=== PATIENT | female | born 1985 | race Caucasian/White ===

== ENCOUNTER 2018-09-02 11:30 | Outpatient (CLI) | payer MEDICAID, SELFPAY ==
[2018-09-02 12:14] LABS: Abs Immature Grans 0.01 k/cumm (0.0-0.09); Absolute Basophil Count 0.01 k/cumm (0.0-0.2); Absolute Eosinophil Count 0.16 k/cumm (0.0-0.7); Absolute Lymphocyte Count 2.08 k/cumm (1.2-3.4); Absolute Monocyte Count 0.58 k/cumm (0.11-0.7); Absolute Neutrophil Count 5.11 k/cumm (1.2-6.7); Basophils % 0.1; HCT 36.8 % (36.0-46.0); HGB 12.5 g/dL (12.0-15.5); Immature Grans % 0.1; Lymphocytes % 26.2; Mean Corpuscular Hemoglobin 31.4 pg (27.0-33.0); Mean Corpuscular Volume 92.5 fL (80-95); Monocytes % 7.3; Neutrophils % 64.3; Platelet Count 225 x1000/uL (130-400); RBC 3.98 m/cumm (4.00-5.20); RBC Distribution Width 12.1 % (11.7-14.6); White Blood Cell Count 7.95 k/cumm (4.4-10.8)
[2018-09-02 13:57] LABS: TSH (W/Ref FT4) 1.08 uIU/mL (0.358-3.74)
[2018-09-03 11:46] LABS: Hepatitis B Surface Ag Negative (NEGAT)
[2018-09-03 12:10] LABS: HIV-1/2 Ag & Ab Screen Negative (NEGAT); Hepatitis C Ab w Rflx HCV PCR Negative (NEGAT)
[2018-09-03 12:23] LABS: Rubella IgG Ab (UVM) Positive; Syphilis Serology (RPR) Negative (Negative); Varicella IgG Antibody Positive
== END 2018-09-02 11:50 ==
PROVIDERS: Visit Provider Advanced Practice Midwife
DX: Z34.91 Encounter for supervision of normal pregnancy, unspecified, first trimester (principal); Z01.84 Encounter for antibody response examination; Z11.59 Encounter for screening for other viral diseases; Z11.4 Encounter for screening for human immunodeficiency virus [HIV]
CPT/HCPCS: 36415; 80055; 86787; 86803; 86850; 86900; 86901; 87340; 87389; 84443; 86592; 86762

== ENCOUNTER 2018-09-02 18:40 | Outpatient (REF) | payer MEDICAID, SELFPAY ==
[2018-09-02 19:35] LABS: *AMPHETAMINES SCREEN URINE Negative (Negative); *BARBITURATES SCREEN URINE Negative (Negative); *BENZODIAZEPINES SCREEN URINE Negative (Negative); Cannabinoids THC Negative (Negative); Cocaine Screen,Urine Negative (Negative); METHADONE URINE SCREEN Negative (Negative); OPIATES URINE SCREEN Negative (Negative)
[2018-09-02 19:37] LABS: Tricyclic Antidepressants Negative (Negative)
[2018-09-06 14:36] LABS: Buprenorphine Negative; Norbuprenorphine Negative
== END 2018-09-02 19:00 ==
LOC: LBN 18:40
PROVIDERS: Visit Provider Advanced Practice Midwife
DX: Z34.91 Encounter for supervision of normal pregnancy, unspecified, first trimester (principal)
CPT/HCPCS: 80307; 87086

== ENCOUNTER 2018-10-27 16:06 | Outpatient (CLI) | payer MEDICAID, SELFPAY ==
[2018-10-27 19:41] LABS: Vitamin D 25 Total 21.1 ng/ml (30-100)
[2018-10-27 19:56] LABS: Vitamin B12 416 pg/mL (193-986)
[2018-10-27 20:12] LABS: Folate > 20.0 ng/mL (8.6-20.0)
[2018-10-29 14:46] LABS: Calculated age at EDD 34 years; GA used in risk estimate Scan estimate; INHIBIN 197 pg/mL; IVF Pregnancy No; Initial or repeat testing Initial testing; Insulin dependent diabetes No; Maternal Weight 140 lbs; Number of Fetuses 1; Physician Phone Number 802-748-7300; Prev Down(T21)/Trisomy Pregnan No; Prev Pregnancy w/NTD No; RECOMMENDED FOLLOW UP None.; Results Summary Normal risk; hCG, TOTAL 29.3 IU/mL; hCG, TOTAL MoM 1.58 MoM; uE3 1.08 ng/mL; uE3 MoM 0.81 MoM
[2018-10-29 15:26] LABS: Chlamydia Result Negative; GC Result Negative; Specimen Description URINE
[2018-11-05 03:21] LABS: Result Summary POSITIVE; Specimen WB Whole Blood
== END 2018-10-27 16:26 ==
PROVIDERS: Visit Provider Advanced Practice Midwife
DX: Z34.91 Encounter for supervision of normal pregnancy, unspecified, first trimester (principal); Z11.3 Encounter for screening for infections with a predominantly sexual mode of transmission; Z36.89 Encounter for other specified antenatal screening
CPT/HCPCS: 36415; 81511; 82306; 87491; 87591; 81220; 82607; 82746

== ENCOUNTER 2018-10-27 17:05 | Outpatient (REF) | payer MEDICAID, SELFPAY | END 2018-10-27 17:25 | LOC: LBN 17:05 | PROVIDERS: Visit Provider Advanced Practice Midwife | DX: Z34.91 Encounter for supervision of normal pregnancy, unspecified, first trimester (principal) | CPT/HCPCS: 87491; 87591 ==

== ENCOUNTER 2018-11-14 00:39 | Outpatient (CLI) | payer MEDICAID, SELFPAY ==
--- NOTE | 2018-11-14 14:27 | DI.US_ITS ---
SYMPTOM/DIAGNOSIS: SURVEY, Z34.90 OBSTETRICAL ULTRASOUND: There is a single living intrauterine gestation. Estimated sonographic age is 21 weeks. No or placental abnormalities are identified. Many abnormalities cannot be diagnosed. A normal exam does not exclude a congenital anomaly. Radiology No. [id number] LMP: Exam Date: 11/14/18 [facility] wks days on EDC ([facility]) 03/31/19 Confirmed: HISTORY: SURVEY PREDICTED GESTATIONAL AGE NUMBER 20 +3 weeks with a range of 19 +3 week to 21 +3 weeks. 1 Determined by___1STUS___LMP_XX__HISTORY Info. pertaining to fetus # PLACENTA PRESENTATION Grade I Cephalic___ Anterior_XX__Posterior___ Breech____ Right Left Transverse(head right___ Fundal___Low-lying___Previa___ Transverse(head left___ Varying__XX____ BIOMETRY AMNIOTIC FLUID BPD: 51 mm 21 +3 weeks Normal HC: 185 mm 20 +6 weeks AC: 155 mm 20 +5 weeks FL: 34 mm 20 +6 weeks AMNIOTIC FLUID INDEX >26 WK CRL: mm weeks Cisterna Magna: 4.1 mm CI: 82 RUQ: LUQ Cerebellum: 2.0 cm EFW: 376 grams 65% Percentile RLQ: LLQ Total: cms Composite AGE= 21 - wks EDC by US__03/27/19 BIOPHYSICAL PROFILE ANATOMY IDENTIFIED SCORE 0/2 Heart: 4-Chamber__X_Rate:BPM__160 bpm___ LVOT:___X RVOT:___X Amniotic Fluid(>2cms)____ Stomach:___X____ Kidneys:___X____ Respirations (>30 secs) Bladder:___X Post. Fossa:___X Body Flex/Extension 3 vessel cord:___X____Ventricles:___X cord insertion:__X___ Lips:___X_ Extremity Flex/Extension spinal morphology:__X Nose: X Total Score= Palate:___X____ NS=not seen
== END 2018-11-14 00:59 ==
PROVIDERS: Visit Provider Advanced Practice Midwife
DX: Z34.92 Encounter for supervision of normal pregnancy, unspecified, second trimester (principal)
CPT/HCPCS: 76805

== ENCOUNTER 2018-12-03 13:12 | Outpatient (REF) | payer MEDICAID, SELFPAY | END 2018-12-03 13:32 | LOC: LBN 13:12 | PROVIDERS: Visit Provider Advanced Practice Midwife | DX: N76.0 Acute vaginitis (principal) | CPT/HCPCS: 87480; 87510; 87660 ==

== ENCOUNTER 2019-02-23 13:11 | Outpatient (CLI) | payer MEDICAID, SELFPAY ==
[2019-02-23 14:37] LABS: Abs Immature Grans 0.04 k/cumm (0.0-0.09); Absolute Basophil Count 0.01 k/cumm (0.0-0.2); Absolute Lymphocyte Count 1.65 k/cumm (1.2-3.4); Absolute Monocyte Count 0.68 k/cumm (0.11-0.7); Absolute Neutrophil Count 8.59 k/cumm (1.2-6.7); Basophils % 0.1; Eosinophils % 0.9; HGB 12.2 g/dL (12.0-15.5); Immature Grans % 0.4; Lymphocytes % 14.9; Mean Corp. HGB Concentration 33.9 g/dL (32.0-36.0); Mean Corpuscular Volume 94.5 fL (80-95); Mean Platelet Volume 11.3 fL (8.0-11.0); Monocytes % 6.1; Neutrophils % 77.6; Platelet Count 223 x1000/uL (130-400); RBC 3.81 m/cumm (4.00-5.20); RBC Distribution Width 12.6 % (11.7-14.6); White Blood Cell Count 11.07 k/cumm (4.4-10.8)
[2019-02-23 15:18] LABS: Glucose 104 mg/dL (70-100)
[2019-02-23 15:22] LABS: Iron 67 ug/dL (50-175); Total Iron Binding Capacity 456 ug/dL (250-450); Transferrin Sat 15 % (15-50)
[2019-02-23 15:49] LABS: Ferritin 15 ng/mL (8-388); Vitamin B12 298 pg/mL (193-986)
[2019-02-23 15:55] LABS: Folate > 20.0 ng/mL (8.6-20.0)
[2019-02-23 17:39] LABS: Hemoglobin A1C 5.4 % (4.5-6.2)
[2019-02-27 15:49] LABS: Methylenetetrahydrofol Reduc M Heterozygous (Negative)
== END 2019-02-23 13:31 ==
PROVIDERS: Advanced Practice Midwife; Visit Provider Naturopath
DX: R79.89 Other specified abnormal findings of blood chemistry (principal); R77.8 Other specified abnormalities of plasma proteins; D64.9 Anemia, unspecified; Z34.90 Encounter for supervision of normal pregnancy, unspecified, unspecified trimester
CPT/HCPCS: 82947; 81291; 82607; 82728; 82746; 83036; 83540; 83550; 85025; 87081

== ENCOUNTER 2019-03-06 12:58 | Outpatient (REF) | payer MEDICAID, SELFPAY ==
[2019-03-06 14:22] LABS: *AMPHETAMINES SCREEN URINE Negative (Negative); *BARBITURATES SCREEN URINE Negative (Negative); *BENZODIAZEPINES SCREEN URINE Negative (Negative); Cannabinoids THC Negative (Negative); Cocaine Screen,Urine Negative (Negative); METHADONE URINE SCREEN Negative (Negative); OPIATES URINE SCREEN Negative (Negative)
[2019-03-06 14:29] LABS: Tricyclic Antidepressants Negative (Negative)
[2019-03-11 14:41] LABS: Buprenorphine Negative
== END 2019-03-06 13:18 ==
LOC: LBN 12:58
PROVIDERS: PCP Nurse Practitioner Adult Health; Visit Provider Advanced Practice Midwife
DX: Z34.93 Encounter for supervision of normal pregnancy, unspecified, third trimester (principal)
CPT/HCPCS: 80307

== ENCOUNTER 2019-04-02 05:34 | Inpatient (IN) | payer MEDICAID, SELFPAY ==
[2019-04-02 07:36] LABS: HCT 38.1 % (36.0-46.0); HGB 12.9 g/dL (12.0-15.5); Mean Corp. HGB Concentration 33.9 g/dL (32.0-36.0); Mean Corpuscular Volume 94.5 fL (80-95); Platelet Count 216 x1000/uL (130-400); RBC 4.03 m/cumm (4.00-5.20); RBC Distribution Width 12.7 % (11.7-14.6); White Blood Cell Count 14.34 k/cumm (4.4-10.8)
[2019-04-02] MEDS: Lactated Ringers 500 ML IV (10:30)
[2019-04-02] MEDS: FentaNYL/ROPIvacaine 2 mcg/ml and 0.1% 200 ML CADD Cassette EP (10:32)
[2019-04-02] MEDS: Lactated Ringers 1,000 ML 125 ML IV (16:23)
[2019-04-02] MEDS: Sodium Citrate 30 ML CUP (16:23)
--- NOTE | 2019-04-02 20:01 | ROE_ITS ---
Date of service: 04/02/19 Time of Service: 19:54 Operative Note DATE OF PROCEDURE: 04/02/19 PRE-OP DIAGNOSIS: Arrest of descent in second stage labor POST-OP DIAGNOSIS: same PROCEDURE: Low Forceps SURGEON: Willy Lou ANESTHESIA: epidural ESTIMATED BLOOD LOSS: 300 PATHOLOGY: none sent COMPLICATIONS: None Findings: 1. Del LBF 7,8 with thick meconium Procedure Description: I was asked to evaluate the patient during second stage of greater than 4 hours. Fetus noted to be in direct OP position and +2 station. The patient was counseled on risks related to operative vaginal delivery including facial nerve injury and intracranial hemorrhage. All questions were answered and verbal consent was obtained. Liukart henson forceps were applied easily. Gentle traction augmented maternal effort. The infant was delivered after two contractions and over a second degree laceration. The infant was placed on maternal abdomen and subsequently handed off to the awaiting vice president of engineering.
[2019-04-02] MEDS: Acetaminophen 325 MG TAB 650 MG PO (23:49)
[2019-04-02] MEDS: Ibuprofen 600 MG TAB PO (23:49)
[2019-04-03] MEDS: Hamamelis Leaf/Glycerin 100 EACH BOX PR (00:05)
[2019-04-03] MEDS: Acetaminophen 325 MG TAB 650 MG PO ×5 (06:23→20:01)
[2019-04-03] MEDS: Ibuprofen 600 MG TAB PO ×4 (06:23→19:45)
[2019-04-03 07:18] LABS: HCT 34.3 % (36.0-46.0); HGB 11.3 g/dL (12.0-15.5); Mean Corp. HGB Concentration 32.9 g/dL (32.0-36.0); Mean Corpuscular Hemoglobin 31.1 pg (27.0-33.0); Mean Corpuscular Volume 94.5 fL (80-95); Mean Platelet Volume 12.1 fL (8.0-11.0); Platelet Count 174 x1000/uL (130-400); RBC 3.63 m/cumm (4.00-5.20); RBC Distribution Width 12.8 % (11.7-14.6)
[2019-04-03] MEDS: Sertraline 25 MG TAB PO (09:09)
[2019-04-04] MEDS: Acetaminophen 325 MG TAB 650 MG PO ×3 (00:16→15:06)
[2019-04-04] MEDS: Ibuprofen 600 MG TAB PO ×2 (00:54→10:37)
[2019-04-04] MEDS: oxyCODONE 5 mg/Acetaminophen 325 mg TAB 1 TAB PO ×2 (02:24→07:50)
[2019-04-04] MEDS: Sertraline 25 MG TAB 12.5 MG PO (07:50)
== END 2019-04-04 16:15 | disposition home or self-care (01) | DRG 807 ==
PROVIDERS: Obstetrics & Gynecology; Admitting Provider Advanced Practice Midwife; Visit Provider Advanced Practice Midwife
DX: O70.1 Second degree perineal laceration during delivery (principal); Z37.0 Single live birth; O77.0 Labor and delivery complicated by meconium in amniotic fluid; O62.1 Secondary uterine inertia; O32.8XX0 Maternal care for other malpresentation of fetus, not applicable or unspecified; O48.0 Post-term pregnancy; Z3A.40 40 weeks gestation of pregnancy; O42.02 Full-term premature rupture of membranes, onset of labor within 24 hours of rupture; O99.344 Other mental disorders complicating childbirth; O99.62 Diseases of the digestive system complicating childbirth; F41.8 Other specified anxiety disorders; F43.10 Post-traumatic stress disorder, unspecified; X58.XXXS Exposure to other specified factors, sequela; R12 Heartburn
CPT/HCPCS: 36415; 85027; 86850; 86900; 86901; G0378; J3490

== ENCOUNTER 2019-04-08 17:06 | Outpatient (REF) | payer MEDICAID, SELFPAY | END 2019-04-08 17:26 | LOC: LBN 17:06 | PROVIDERS: PCP Obstetrics & Gynecology; Visit Provider Obstetrics & Gynecology | DX: R30.0 Dysuria (principal) | CPT/HCPCS: 87086 ==

== ENCOUNTER 2019-04-12 16:23 | Outpatient (CLI) | payer MEDICAID, SELFPAY ==
[2019-04-12 17:32] LABS: HCT 37.6 % (36.0-46.0); HGB 12.3 g/dL (12.0-15.5); Mean Corp. HGB Concentration 32.7 g/dL (32.0-36.0); Mean Corpuscular Hemoglobin 31.1 pg (27.0-33.0); Mean Corpuscular Volume 95.2 fL (80-95); Mean Platelet Volume 10.5 fL (8.0-11.0); RBC 3.95 m/cumm (4.00-5.20); RBC Distribution Width 12.6 % (11.7-14.6); White Blood Cell Count 10.78 k/cumm (4.4-10.8)
[2019-04-12 17:34] LABS: Platelet Count 383 x1000/uL (130-400)
== END 2019-04-12 16:43 ==
PROVIDERS: PCP Obstetrics & Gynecology; Visit Provider Advanced Practice Midwife
DX: O90.1 Disruption of perineal obstetric wound (principal)
CPT/HCPCS: 36415; 85027

== ENCOUNTER 2019-04-12 18:27 | Observation (INO) | payer MEDICAID, SELFPAY | END 2019-04-12 19:50 | disposition home or self-care (01) | PROVIDERS: Admitting Provider Advanced Practice Midwife; PCP Obstetrics & Gynecology; Visit Provider Advanced Practice Midwife | DX: O90.89 Other complications of the puerperium, not elsewhere classified (principal); O90.1 Disruption of perineal obstetric wound; O92.79 Other disorders of lactation | CPT/HCPCS: 36415; 85027; 87086; G0378 ==

== ENCOUNTER 2019-05-19 10:34 | Outpatient (REF) | payer MEDICAID, SELFPAY ==
--- NOTE | 2019-05-19 16:00 | PAPFT_PTH ---
PATIENT: Miesha Cheema LOC: [facility] U#:[id number] AGE/SX: 33/F ROOM: RE05/19/[address]: Patricia Brar CNM : 1985 BED: DIS: 05/19/2019 SPEC #: [id number] RECD: 05/20/19 12:48 STATUS: H[place]ARY REBertha #: [id number] REYMUNDO: 05/19/19 16:[address]: Patricia Brar DEPT: [facility] Cytology RECD BY: Kemi Hall ENTERED: 05/20/19 12:49 SP TYPE: PAPFT OT DR: Maria Guadalupe Ring APRN Tissues: 1 - CX/ENDOCX FOR PAP SMEARS Procedures: PAP THIN PREP/UVM Screening HPV DNA PROBE Comments: [id number]
[2019-05-21 13:38] LABS: Chlamydia Result Negative; GC Result Negative; Specimen Description CERVIX
== END 2019-05-19 10:54 ==
LOC: LBN 10:34
PROVIDERS: PCP Nurse Practitioner Adult Health; Visit Provider Advanced Practice Midwife
DX: Z30.430 Encounter for insertion of intrauterine contraceptive device (principal); Z12.4 Encounter for screening for malignant neoplasm of cervix; Z11.51 Encounter for screening for human papillomavirus (HPV)
CPT/HCPCS: 87491; 87591; 88142; 87624

== ENCOUNTER 2019-07-25 10:30 | Outpatient (CLI) | payer OTHER, SELFPAY ==
[2019-07-25 11:18] LABS: HCT 41.8 % (36.0-46.0); HGB 13.6 g/dL (12.0-15.5); Mean Corp. HGB Concentration 32.5 g/dL (32.0-36.0); Mean Corpuscular Volume 92.3 fL (80-95); Mean Platelet Volume 10.5 fL (8.0-11.0); Platelet Count 356 x1000/uL (130-400); RBC 4.53 m/cumm (4.00-5.20); RBC Distribution Width 12.5 % (11.7-14.6)
[2019-07-25 12:40] LABS: ALT 40 U/L (14-59); AST 22 U/L (15-37); Albumin 4.1 g/dL (3.4-5.0); Alkaline Phosphatase 140 U/L (46-116); Anion Gap 11.4 mmol/L (3-11); BUN 14 mg/dL (7-18); Bilirubin, Total 0.3 mg/dL (0.2-1.0); CO2 28.6 mmol/L (21.0-32.0); CREATININE 0.63 mg/dL (0.55-1.02); Calcium 8.9 mg/dL (8.5-10.1); Chloride 103 mmol/L (98-107); Glucose 96 mg/dL (70-100); Potassium 4.2 mmol/L (3.5-5.1); Sodium 143 mmol/L (136-145); TSH (W/Ref FT4) 0.82 uIU/mL (0.36-3.74); Vitamin B12 615 pg/mL (193-986)
[2019-07-25 13:23] LABS: Folate > 20.0 ng/mL (8.6-20.0)
[2019-07-27 11:46] LABS: Vitamin D 25 Total 26.7 ng/ml (30-100)
== END 2019-07-25 10:50 ==
PROVIDERS: PCP Nurse Practitioner Adult Health; Visit Provider Nurse Practitioner Adult Health
DX: R53.83 Other fatigue (principal); F32.9 Major depressive disorder, single episode, unspecified; F41.9 Anxiety disorder, unspecified
CPT/HCPCS: 36415; 80053; 82306; 85027; 82607; 82746; 84443

== ENCOUNTER 2020-02-12 02:59 | Outpatient (CLI) | payer MEDICAID, SELFPAY ==
[2020-02-12 17:55] LABS: TSH (W/Ref FT4) 1.46 uIU/mL (0.36-3.74)
[2020-02-15 06:31] LABS: Vitamin D 25 Total 24.8 ng/ml (30-100)
[2020-02-18 13:57] LABS: IgA 316 mg/dL (85-499); Tissue Transglutaminase IgA <1.2 U/mL (<4.0)
== END 2020-02-12 03:19 ==
PROVIDERS: PCP Nurse Practitioner Adult Health; Visit Provider Nurse Practitioner Adult Health
DX: K90.41 Non-celiac gluten sensitivity (principal); K90.49 Malabsorption due to intolerance, not elsewhere classified; E55.9 Vitamin D deficiency, unspecified; F32.9 Major depressive disorder, single episode, unspecified
CPT/HCPCS: 36415; 82306; 82784; 83516; 84443

== ENCOUNTER 2020-03-02 03:25 | Outpatient (CLI) | payer MEDICAID, SELFPAY ==
[2020-03-04 15:58] LABS: Copper, Serum 1.24 mcg/mL (0.75-1.45)
== END 2020-03-02 03:45 ==
PROVIDERS: PCP Nurse Practitioner Adult Health; Visit Provider Nurse Practitioner Adult Health
DX: F41.9 Anxiety disorder, unspecified (principal); R19.4 Change in bowel habit; Z97.5 Presence of (intrauterine) contraceptive device
CPT/HCPCS: 36415; 82525; 84630

== ENCOUNTER 2020-03-28 01:18 | Outpatient (CLI) | payer MEDICAID, SELFPAY ==
[2020-03-28 16:01] LABS: Magnesium 1.9 mg/dL (1.8-2.4)
[2020-03-28 16:37] LABS: Vitamin D 25 Total 27.1 ng/ml (30-100)
== END 2020-03-28 01:38 ==
PROVIDERS: PCP Nurse Practitioner Adult Health; Visit Provider Nurse Practitioner Adult Health
DX: E55.9 Vitamin D deficiency, unspecified (principal); F32.9 Major depressive disorder, single episode, unspecified; F40.10 Social phobia, unspecified; F41.1 Generalized anxiety disorder; K90.49 Malabsorption due to intolerance, not elsewhere classified
CPT/HCPCS: 36415; 82306; 83735

== ENCOUNTER 2020-07-01 02:18 | Outpatient (CLI) | payer MEDICAID, SELFPAY ==
[2020-07-01 16:00] LABS: Abs Immature Grans 0.02 10^3/uL (0.0-0.06); Absolute Basophil Count 0.02 10^3/uL (0.0-0.2); Absolute Eosinophil Count 0.24 10^3/uL (0.0-0.7); Absolute Lymphocyte Count 2.76 10^3/uL (1.2-3.4); Absolute Monocyte Count 0.52 10^3/uL (0.1-0.8); Absolute Neutrophil Count 5.49 10^3/uL (1.2-6.7); Basophils % 0.2; Eosinophils % 2.7; HCT 38.5 % (36.0-46.0); Immature Grans % 0.2; Lymphocytes % 30.5; MCH 31.3 pg (27.0-33.0); MCHC 33.8 % (32.0-36.0); MCV 92.8 fL (80-95); MPV 11.7 fL (8.0-11.0); Monocytes % 5.7; Neutrophils % 60.7; Nucleated RBC 0 %; Platelet Count 215 10^3/uL (130-400); RBC 4.15 10^6/uL (3.93-5.22); RDW 11.8 % (11.7-14.6); RDW-SD 39.8 fL; WBC 9.05 10^3/uL (4.4-10.8)
[2020-07-01 16:51] LABS: ALT 29 U/L (14-59); AST 15 U/L (15-37); Albumin 4.2 g/dL (3.4-5.0); Alkaline Phosphatase 77 U/L (46-116); Anion Gap 11.7 mmol/L (3-11); BUN 9 mg/dL (7-18); Bilirubin, Total 0.5 mg/dL (0.2-1.0); CO2 25.3 mmol/L (21.0-32.0); CREATININE 0.62 mg/dL (0.55-1.02); Calcium 8.8 mg/dL (8.5-10.1); Chloride 101 mmol/L (98-107); FREE T4 1.06 ng/dL (0.76-1.46); Glucose 79 mg/dL (74-106); Potassium 3.5 mmol/L (3.5-5.1); Sodium 138 mmol/L (136-145); TSH 1.26 uIU/mL (0.36-3.74); Total Protein 7.4 g/dL (6.4-8.2)
[2020-07-01 21:11] LABS: T3,Free 3.7 pg/mL (2.8-5.3)
[2020-07-01 22:30] LABS: Thyroperoxidase Antibody <28 U/mL (<=60)
[2020-07-01 22:31] LABS: Thyroglobulin Antibody <15 U/mL (<=60)
[2020-07-01 22:35] LABS: Iron 95 ug/dL (50-170); Total Iron Binding Capacity 334 ug/dL (250-450); Transferrin Sat 28 % (15-50)
[2020-07-04 15:09] LABS: ANA Interpretation Negative (Negative)
[2020-07-05 10:41] LABS: 25-Hydroxy D Total 29 ng/mL; 25-Hydroxy D2 16 ng/mL; 25-Hydroxy D3 13 ng/mL
[2020-07-05 19:06] LABS: B.burgdorferi PCR, B Negative (Negative); B.garinii/B.afzelii PCR,B Negative (Negative); B.mayonii PCR, B Negative (Negative)
== END 2020-07-01 02:38 ==
PROVIDERS: PCP Nurse Practitioner Adult Health; Visit Provider Naturopath
DX: E55.9 Vitamin D deficiency, unspecified (principal); R53.83 Other fatigue; M79.18 Myalgia, other site
CPT/HCPCS: 36415; 80053; 82306; 87476; 87798; 83540; 83550; 84439; 84443; 84481; 85025; 86038; 86376; 86800

== ENCOUNTER 2020-07-22 04:43 | Outpatient (CLI) | payer MEDICAID, SELFPAY ==
--- NOTE | 2020-07-22 | DI.MAMMO_ITS ---
EXAM: MG MAMMO SCREENING CLINICAL HISTORY: SCREENING,FAMILY H/O BREAST CA TECHNIQUE: Bilateral full field digital CC and MLO mammographic images were obtained with 3D tomosyn thesis and utilizing computer aided detection (CAD). COMPARISON: None. FINDINGS: Masses/Architectural Distortion: None seen. Microcalcifications: No suspicious pleomorphic-type are seen. Skin Thickening/Nipple Retraction: None. IMPRESSION: 1. No specific features of malignancy noted. 2. Unless there is more urgent need, screening mammography is recommended, as per [place] [employer] guidelines. BI-RADS Category 1 - Negative Breast Density - Category C - Heterogeneously dense The mammogram demonstrates the patient's breast tissue is dense. Dense breast tissue is very common a nd is not abnormal but dense breast tissue can make it harder to find cancer on a mammogram. Also, de nse breast tissue may increase their breast cancer risk. This information about the result of the [facility] mogram report was provided to the patient to raise their awareness. Use this report when you speak wi th the patient about their risks for breast cancer, which includes their family history. At that time , you may recommend for more screening tests (Ultrasound or MRI) as they might be useful based on the ir risk. A negative radiographic report should not delay biopsy if a dominant or clinically suspicious mass is present. Up to ten percent of cancers are not identified on mammography. A negative report may reinforce clinical impression. Adenosis and dense breasts may obscure an underlying neoplasm. False positive reports average 6 to 10%. Patient will receive a letter notifying them of these results.
== END 2020-07-22 05:03 ==
PROVIDERS: PCP Nurse Practitioner Adult Health
DX: Z12.31 Encounter for screening mammogram for malignant neoplasm of breast (principal); Z80.3 Family history of malignant neoplasm of breast
CPT/HCPCS: 77063; 77067

== ENCOUNTER 2021-04-26 03:02 | Outpatient (CLI) | payer MEDICAID, SELFPAY ==
[2021-04-26 17:17] LABS: Abs Immature Grans 0.03 10^3/uL (0.0-0.06); Absolute Basophil Count 0.03 10^3/uL (0.0-0.2); Absolute Eosinophil Count 0.29 10^3/uL (0.0-0.7); Absolute Lymphocyte Count 3.16 10^3/uL (1.2-3.4); Absolute Monocyte Count 0.59 10^3/uL (0.1-0.8); Absolute Neutrophil Count 6.13 10^3/uL (1.2-6.7); Basophils % 0.3; Eosinophils % 2.8; HCT 41.7 % (36.0-46.0); HGB 13.9 g/dL (11.2-15.7); Immature Grans % 0.3; Lymphocytes % 30.9; MCH 30.9 pg (27.0-33.0); MCHC 33.3 % (32.0-36.0); MCV 92.7 fL (80-95); MPV 11.4 fL (8.0-11.0); Monocytes % 5.8; Neutrophils % 59.9; Nucleated RBC 0 %; Platelet Count 245 10^3/uL (130-400); RDW 11.8 % (11.7-14.6); RDW-SD 40.4 fL; WBC 10.23 10^3/uL (4.4-10.8)
[2021-04-26 17:35] LABS: Hemoglobin A1C 5.4 % (<5.7)
[2021-04-26 18:09] LABS: ALT 34 U/L (14-59); AST 17 U/L (15-37); Albumin 4.7 g/dL (3.4-5.0); Alkaline Phosphatase 90 U/L (46-116); Anion Gap 11.7 mmol/L (3-11); BUN 8 mg/dL (7-18); Bilirubin, Total 0.5 mg/dL (0.2-1.0); CO2 26.3 mmol/L (21.0-32.0); CREATININE 0.6 mg/dL (0.55-1.02); Calcium 9.6 mg/dL (8.5-10.1); Calculated LDL 133 mg/dL (<100); Chloride 101 mmol/L (98-107); Cholesterol 201 mg/dL (<200); Ferritin 81 ng/mL (8-252); Glucose 79 mg/dL (74-106); HDL Cholesterol 51 mg/dL (40-60); Potassium 3.5 mmol/L (3.5-5.1); Sodium 139 mmol/L (136-145); T4 8.6 ug/mL (4.7-13.3); TSH 1.06 uIU/mL (0.36-3.74); Total Protein 8.3 g/dL (6.4-8.2); Triglyceride 86 mg/dL (<150)
[2021-04-27 04:49] LABS: Vitamin D 25 Total 41.9 ng/mL (30-100)
[2021-04-27 16:24] LABS: Estradiol 117 pg/mL (See Note)
[2021-04-27 16:33] LABS: Progesterone 11.5 ng/mL (See Table)
[2021-04-27 16:58] LABS: Thyroglobulin Antibody <15 U/mL (<=60); Thyroperoxidase Antibody <28 U/mL (<=60)
[2021-04-27 22:03] LABS: CRP, High Sensitivity 1.26 mg/L (See Note)
[2021-04-27 22:38] LABS: T3,Free 3.3 pg/mL (2.8-5.3)
[2021-04-28 09:02] LABS: DHEA Sulfate 286 ug/dL (75-410); Transferrin 246 mg/dL (201-352)
[2021-04-28 14:01] LABS: ANA Interpretation Negative (Negative)
[2021-05-01 14:57] LABS: Testosterone, Free 0.58 ng/dL (0.06-1.00); Testosterone, Total 29 ng/dL (8-60)
[2021-05-04 09:35] LABS: Insulin <3.0 uIU/mL (<29.0)
== END 2021-04-26 03:03 | disposition home or self-care (01) ==
LOC: LBO 03:02
PROVIDERS: PCP Nurse Practitioner Adult Health; Visit Provider Naturopath
DX: E55.9 Vitamin D deficiency, unspecified (principal); L67.8 Other hair color and hair shaft abnormalities; M79.18 Myalgia, other site; N94.3 Premenstrual tension syndrome; R63.5 Abnormal weight gain; Z13.1 Encounter for screening for diabetes mellitus; Z13.220 Encounter for screening for lipoid disorders; Z14.8 Genetic carrier of other disease
CPT/HCPCS: 36415; 80053; 80061; 82306; 82627; 84402; 84403; 86141; 86376; 82670; 82728; 83036; 83525; 84144; 84436; 84443; 84466; 84481; 85025; 86038

== ENCOUNTER 2021-07-15 15:35 | Outpatient (REF) | payer MEDICAID, SELFPAY ==
[2021-07-15 21:57] LABS: Bilirubin Negative (Negative); Blood Small (Negative); Clarity Clear (Clear); Glucose Negative (Negative); Ketones Negative (Negative); Leukocyte Esterase Small (Negative); Nitrite Positive (Negative); Specific Gravity 1.015 (1.005-1.025); Urobilinogen 0.2 EU/dL (Up TO 0.2)
[2021-07-15 22:08] LABS: Bacteria Few HPF (Negative); C & S Indicated? Yes; Casts Negative LPF (Negative); Crystals Negative HPF (Negative); Epithelial Cells Rare HPF (Negative); Mucus Negative (Negative); WBC 0-2 HPF (0-5)
[2021-07-16 14:27] LABS: COVID-19 RT-PCR UVMMC Result Negative (Negative)
== END 2021-07-15 15:36 | disposition home or self-care (01) ==
LOC: LBN 15:35
PROVIDERS: PCP Nurse Practitioner Adult Health; Visit Provider Physician Assistant
DX: N39.0 Urinary tract infection, site not specified (principal); J06.9 Acute upper respiratory infection, unspecified; R53.83 Other fatigue; Z20.822 Contact with and (suspected) exposure to COVID-19
CPT/HCPCS: 87077; U0003; 81003; 81015; 87086; 87186

== ENCOUNTER 2021-10-11 03:57 | Outpatient (CLI) | payer MEDICAID, SELFPAY ==
[2021-10-11 15:51] LABS: Vitamin B12 590 pg/mL (193-986)
== END 2021-10-11 03:58 | disposition home or self-care (01) ==
LOC: LBO 03:57
PROVIDERS: PCP Nurse Practitioner Adult Health; Visit Provider Nurse Practitioner Family
DX: R41.840 Attention and concentration deficit (principal)
CPT/HCPCS: 36415; 82607

== ENCOUNTER 2021-12-27 02:46 | Outpatient (CLI) | payer MEDICAID, SELFPAY | END 2021-12-27 02:47 | disposition home or self-care (01) | LOC: LBO 02:46 | PROVIDERS: PCP Nurse Practitioner Family; Visit Provider Nurse Practitioner Family | DX: K90.49 Malabsorption due to intolerance, not elsewhere classified (principal) | CPT/HCPCS: 36415; 83520 ==

== ENCOUNTER 2022-02-16 21:26 | Emergency (ER) | payer MEDICAID, SELFPAY ==
[2022-02-16 21:32] VITALS: BP 118/77; PULSE 73; RESP 14; TEMP 36.8; O2SAT 100
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
[2022-02-16] MEDS: diphenhydrAMINE 25 MG CAP PO (22:59)
[2022-02-16] MEDS: LORazepam 1 MG TAB PO (22:59)
--- NOTE | 2022-02-17 01:43 | ED.PROG_ITS ---
Date of service: 02/17/22 Time of Service: 00:45 Medical Decision Making Patient signed out pending mental health evcesar and Brandy from [facility] evaluated and would like to reassess her in the morning, will have her remain in the ED for reassessment in the morning. Sign Out Sign Out Data: Sign Out Comment: disturbing thoughts regarding her children, concern for homicidal risk; awaiting [facility] evaluation Last updated by Barry Patrick MD at 02/16/22 23:03 Sign Out Comment: has been having thoughts of harming children, voluntary. Last updated by Nikos Griffiths MD at 02/16/22 23:43 Discharge Plan Disposition Patient Disposition: STILL A PATIENT Condition: Stable Discharge Details Clinical Impression: Thoughts of violence, Anxiety Primary Care Provider: Sulma Ma ED Provider: Nikos Griffiths Home Meds and New Rx's Prescriptions: No Action ascorbic acid (vitamin C) 1,000 mg tablet 1 g PO DAILY dim 200 mg PO DAILY Algal [place]-3 DHA 200 mg capsule 200 mg PO DAILY levomefolate calcium [L-Methylfolate] 7.5 mg tablet 7.5 mg PO DAILY Qty: 90 3RF progesterone cream 20 mg cream 1 pump topical DAILY Label Comments: on 14 days between ovulation and menstruation vitamin D3-vitamin K2 250 mcg (10,000 unit)-45 mcg capsule 1 cap PO DAILY epinephrine [EpiPen 2-Reji] 0.3 mg/0.3 mL auto-injector 0.3 mg IM Q5-15M PRN (Reason: hypersensitivity reaction) Qty: 2 0RF Rx Instructions: do not exceed 3 doses per episode albuterol sulfate [Proventil HFA] 90 mcg/actuation HFA aerosol inhaler 1 - 2 puff IH Q6H PRN (Reason: shortness of breath or wheezing) Qty: 8.5 1RF Rx Instructions: Please dispense with spacer.
--- NOTE | 2022-02-17 09:17 | W.EDPROG ---
Date of service: 02/17/22 Time of Service: 08:18 Medical Decision Making 0800 -- Patient evaluated by Brandy with mental health and cleared for discharge to home. Brandy will follow up with her tomorrow morning. She was given behavioral health counseling. Patient expressed desire to speak with psychiatrist. DCF was also contacted regarding her thoughts previously expressed of potential harm towards her children. She is currently denying any of these thoughts. 929 -- I evaluated patient at bedside and she is requesting to start medication and speak with a psychiatrist. Patient states she had thoughts of throwing her 3-year-old daughter out the window 2 days ago but is currently denying any thoughts. She denies any suicidal ideation. She states she feels she needs to stay in the hospital to start medication but if she is able to see her provider on Saturday she is willing to go home. Brandy discussed with patient's who will be home all weekend and will not leave the children alone with patient. Brandy also discussed with DCF and intake number is [id number]. Pt made aware that DCF contacted. 1300 --no response from Dr. Mills. Case discussed again with Brandy who has put in a referral for care bed for patient to go to potentially on Saturday. Results discussed with who is agreeable with patient going home and plan is for to be with children at all times and not be left alone with mom. Patient will follow-up with [facility] human services tomorrow at 10 AM and on Saturday. Patient requested a few doses of lorazepam for home. Patient also placed on care management list to arrange for a follow-up appointment with her pcp at [facility] on Saturday for reevaluation and discussion regarding starting medication per patient's request. Usual and customary return precautions given prior to discharge. Medical Records Medical records reviewed: Yes I reviewed the patient's medical records. Sign Out Sign Out Data: Sign Out Comment: disturbing thoughts regarding her children, concern for homicidal risk; awaiting [facility] evaluation Last updated by Barry Patrick MD at 02/16/22 23:03 Sign Out Comment: has been having thoughts of harming children, pending reevaluation in the AM Last updated by Nikos Griffiths MD at 02/17/22 01:46 Discharge Plan Disposition Patient Disposition: HOME Condition: Stable Discharge Details Clinical Impression: Anxiety, Thoughts of violence Primary Care Provider: Sulma Ma ED Provider: Narda Bryan Home Meds and New Rx's Prescriptions: Continued ascorbic acid (vitamin C) 1,000 mg tablet 1 g PO DAILY dim 200 mg PO DAILY Algal [place]-3 DHA 200 mg capsule 200 mg PO DAILY levomefolate calcium [L-Methylfolate] 7.5 mg tablet 7.5 mg PO DAILY Qty: 90 3RF progesterone cream 20 mg cream 1 pump topical DAILY Label Comments: on 14 days between ovulation and menstruation vitamin D3-vitamin K2 250 mcg (10,000 unit)-45 mcg capsule 1 cap PO DAILY epinephrine [EpiPen 2-Reji] 0.3 mg/0.3 mL auto-injector 0.3 mg IM Q5-15M PRN (Reason: hypersensitivity reaction) Qty: 2 0RF Rx Instructions: do not exceed 3 doses per episode albuterol sulfate [Proventil HFA] 90 mcg/actuation HFA aerosol inhaler 1 - 2 puff IH Q6H PRN (Reason: shortness of breath or wheezing) Qty: 8.5 1RF Rx Instructions: Please dispense with spacer. Discharge Instructions Instructions: Anxiety (ED) Additional Instructions: Drink plenty of fluids and get plenty of rest. Take 650 mg of Tylenol every 4 hours and 600 mg of ibuprofen every 6 hours as needed for injection site pain in your left arm. Follow-up with [facility] human services tomorrow at 10 AM. You have been placed on care management list to arrange for a follow-up appointment with your primary care doctor on Saturday for reevaluation and to discuss starting medication for your symptoms. You are being sent home with a few tabs of Ativan to take as needed and directed for feelings of anxiety or to help with sleep. Return immediately to the emergency department if you develop any worsening or new concerning symptoms. Discharge Data Discharge Date/Time-TO BE ENTERED AT DEPARTURE: 02/17/22 13:31 Discharge Physician: Narda Bryan
[2022-02-17] MEDS: Acetaminophen 325 MG TAB 650 MG PO (10:59)
[2022-02-17] MEDS: Ibuprofen 600 MG TAB PO (10:59)
[2022-02-17] MEDS: LORazepam 0.5 MG TAB 2 MG PO (13:30)
--- NOTE | 2022-02-17 14:46 | NUR.NOTE ---
Referral faxed to PCP Nitin Ma for anxiety, to start medications, before SatFebruary 22. Maren Sharif
--- NOTE | 2022-02-17 21:42 | PDOC.MHCN_ITS ---
Date of service: 02/17/22 Time of Service: 20:42 Mental Health Crisis Note Presenting Issue How did you arrive at the ED and why did you come: Pt arrived on 02.16.2022 via private car that she drove. She came with concerns for a possible alergic reaction. Pt then disclosed that she had been having HI toward her 3 year old child. Precipitating Factors Pt was assessed early this am and was held due to concerns about her ability to drive and/or possible internal stimuli. [facility] requested to re-evaluate in the am after she had gotten some sleep. After some rest the Pt presented much clearer and was denying SI and HI. Disposition BEHAVIOR: PT is calm, cooperative and engaged. She has good insight and fair judgment. EYE CONTACT: Consistent MOOD: Pt is anxious and at times tearful. AFFECT: Affect is congruent. APPETITE: Pt is eating fine. SLEEP(trouble falling/staying asleep: Pt has been struggling with sleep at home with two hansel. She did get some sleep last night. Plan 1. Pt to return home 2. Pt is not to be left alone with the children this weekend. 3. Pt will outreach to her PCP office Saturday morning for a follow up. 4. This clinician will email her a BH list for the community for her and her to look for counselors for them as a couple and him independently. 5. This clinician will do a referral for the [facility]. 6. Pt will call Saturday and Saturday at 10am for a check in. 7. Pt will see her healthcare facility administrator on Saturday at 1pm. 8. This clinician did a DCF intake and that intake number is [id number] and was made on behave of This clinician and Dr. Bryan. Family is aware the report was made. Signature Clinician's Name/Title: [place] MS, [facility] Emergency Services Clinician, [facility]
== END 2022-02-17 13:31 | disposition home or self-care (01) ==
PROVIDERS: Emergency Provider Physician Assistant; PCP Nurse Practitioner Family
DX: F41.9 Anxiety disorder, unspecified (principal); R45.850 Homicidal ideations
CPT/HCPCS: 81025; 99285; 99284

== ENCOUNTER 2022-06-09 22:30 | Outpatient (REF) | payer MEDICAID, SELFPAY | END 2022-06-09 22:31 | disposition home or self-care (01) | LOC: LBN 22:30 | PROVIDERS: PCP Nurse Practitioner Family; Visit Provider Nurse Practitioner Family | DX: J02.9 Acute pharyngitis, unspecified (principal) | CPT/HCPCS: 87070 ==

== ENCOUNTER 2022-06-11 19:02 | Emergency (ER) | payer MEDICAID, SELFPAY ==
[2022-06-11 19:04] VITALS: BP 144/83; PULSE 111; RESP 18; TEMP 35.8; O2SAT 98
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
[2022-06-11] MEDS: Albuterol HFA 8 GM 60 PUFF INH IH (19:57)
[2022-06-11] MEDS: Benzonatate 100 MG CAP (19:57)
[2022-06-11 20:56] LABS: COVID-19 PCR Negative (Negative); Influenza A PCR Negative (Negative); Influenza B PCR Negative (Negative); RSV PCR Negative (Negative)
[2022-06-11 21:00] LABS: Source Nasopharynx
== END 2022-06-11 20:06 | disposition home or self-care (01) ==
PROVIDERS: Emergency Provider Nurse Practitioner Family; PCP Nurse Practitioner Family
DX: J06.9 Acute upper respiratory infection, unspecified (principal); Z20.822 Contact with and (suspected) exposure to COVID-19
CPT/HCPCS: 87637; 94640; 99283; 99284

== ENCOUNTER 2023-03-20 02:52 | Outpatient (CLI) | payer MEDICAID, SELFPAY ==
--- NOTE | 2023-03-20 08:00 | DI.US_ITS ---
Exam(s) US SOFT TISS BUTTOCK/PERINEUM EXAM: US SOFT TISS BUTTOCK/PERINEUM CLINICAL HISTORY: Nodule perirectal area, non tender, ? cyst,? HS,R22.9. TECHNIQUE: Ultrasound was performed using standard protocol. COMPARISON: None FINDINGS: Images submitted for interpretation from ultrasound of the inguinal region. Images reveal a 2.5-3 millimeter finding which appears exophytic and probably is skin tag or possibl e small thrombosed hemorrhoid at this level. IMPRESSION: As above. Recommend referral to general surgeon for examination. DATA REPOSITORY:
== END 2023-03-20 03:12 ==
LOC: DI 02:52
PROVIDERS: PCP Nurse Practitioner Family; Visit Provider Nurse Practitioner Family
DX: R22.2 Localized swelling, mass and lump, trunk (principal)
CPT/HCPCS: 76857

== ENCOUNTER 2023-04-30 03:49 | Outpatient (CLI) | payer MEDICAID, SELFPAY ==
[2023-04-30 08:03] LABS: Kit/Specimen SENT
== END 2023-04-30 03:50 | disposition home or self-care (01) ==
PROVIDERS: PCP Nurse Practitioner Family; Visit Provider Naturopath
DX: Z02.89 Encounter for other administrative examinations (principal)
CPT/HCPCS: 36415

== ENCOUNTER 2023-08-23 10:06 | Outpatient (CLI) | payer MEDICAID, SELFPAY ==
[2023-08-23 09:17] LABS: Abs Immature Grans 0.02 10^3/uL (0.0-0.06); Absolute Basophil Count 0.03 10^3/uL (0.0-0.2); Absolute Eosinophil Count 0.16 10^3/uL (0.0-0.7); Absolute Lymphocyte Count 2.65 10^3/uL (1.2-3.4); Absolute Monocyte Count 0.51 10^3/uL (0.1-0.8); Absolute Neutrophil Count 3.92 10^3/uL (1.2-6.7); Basophils % 0.4; Eosinophils % 2.2; HCT 42.3 % (36.0-46.0); HGB 14.3 g/dL (11.2-15.7); Immature Grans % 0.3; Lymphocytes % 36.4; MCH 30.5 pg (27.0-33.0); MCHC 33.8 % (32.0-36.0); MCV 90 fL (80-95); MPV 10.6 fL (8.0-11.0); Neutrophils % 53.7; Platelet Count 272 10^3/uL (130-400); RBC 4.69 10^6/uL (3.93-5.22); RDW 12.4 % (11.7-14.6); WBC 7.29 10^3/uL (4.4-10.8)
[2023-08-23 10:06] LABS: Iron 69 ug/dL (50-170); Total Iron Binding Capacity 293 ug/dL (250-450); Transferrin Sat 24 % (15-50)
[2023-08-23 10:11] LABS: ALT 42 U/L (14-59); AST 19 U/L (15-37); Alkaline Phosphatase 100 U/L (46-116); Anion Gap 12.3 mmol/L (3-11); BUN 12 mg/dL (7-18); Bilirubin, Total 0.3 mg/dL (0.2-1.0); CO2 23.7 mmol/L (21.0-32.0); CREATININE 0.6 mg/dL (0.55-1.02); Calculated LDL 144 mg/dL (<100); Chloride 100 mmol/L (98-107); Cholesterol 213 mg/dL (<200); Estimated GFR 117.75 (mL/min/1.73m2); Ferritin 111 ng/mL (8-252); Glucose 92 mg/dL (74-106); HDL Cholesterol 43 mg/dL (40-60); Potassium 3.7 mmol/L (3.5-5.1); Sodium 136 mmol/L (136-145); TSH 1.59 uIU/mL (0.36-3.74); Total Protein 8.4 g/dL (6.4-8.2); Triglyceride 130 mg/dL (<150)
[2023-08-23 10:41] LABS: FREE T4 0.93 ng/dL (0.76-1.46)
[2023-08-25 11:16] LABS: Apolipoprotein B, S 114 mg/dL; Lipoprotein (a) 107 nmol/L (<75)
[2023-08-25 13:41] LABS: Ceruloplasmin 33.7 mg/dL
[2023-08-26 12:55] LABS: Copper, Serum 133 mcg/dL (77-206)
[2023-08-26 20:57] LABS: Zinc, S 112 mcg/dL (60-106)
== END 2023-08-23 10:07 | disposition home or self-care (01) ==
LOC: LBO 10:06
PROVIDERS: PCP Nurse Practitioner Family; Visit Provider Naturopath
DX: Z13.220 Encounter for screening for lipoid disorders (principal); Z13.0 Encounter for screening for diseases of the blood and blood-forming organs and certain disorders involving the immune mechanism; Z13.228 Encounter for screening for other metabolic disorders; F20.2 Catatonic schizophrenia; F41.1 Generalized anxiety disorder; D50.9 Iron deficiency anemia, unspecified
CPT/HCPCS: 36415; 80053; 80061; 82172; 82390; 82525; 83695; 84630; 82728; 83540; 83550; 84439; 84443; 85025

== ENCOUNTER 2023-09-21 11:58 | Emergency (ER) | payer MEDICAID, SELFPAY ==
[2023-09-21 12:05] VITALS: BP 110/61; PULSE 64; RESP 20; TEMP 36.6; O2SAT 97
[2023-09-21 12:28] VITALS: BP 110/61; PULSE 64; RESP 20; TEMP 36.6; O2SAT 97
[2023-09-21 12:30] LABS: Clarity Sl Cloudy (Clear)
[2023-09-21 12:53] LABS: Bacteria Moderate HPF (Negative); C & S Indicated? No/Sq. Contamination; Casts Negative LPF (Negative); Crystals Negative HPF (Negative); Epithelial Cells Moderate HPF (Negative); Mucus Moderate (Negative)
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
[2023-09-21] MEDS: Cephalexin 500 MG CAP PO (13:13)
[2023-09-21 13:14] VITALS: BP 110/61; PULSE 64; RESP 20; TEMP 36.6; O2SAT 97
== END 2023-09-21 13:16 | disposition home or self-care (01) ==
PROVIDERS: Emergency Provider Nurse Practitioner Family; PCP Nurse Practitioner Family
DX: N39.0 Urinary tract infection, site not specified (principal); M54.9 Dorsalgia, unspecified
CPT/HCPCS: 81025; 99283; 81003; 81015

== ENCOUNTER 2023-11-04 09:24 | Outpatient (CLI) | payer MEDICAID, SELFPAY ==
[2023-11-04 13:06] LABS: Vitamin B12 > 2000 pg/mL (193-986)
== END 2023-11-04 09:25 | disposition home or self-care (01) ==
LOC: LOS 09:29
PROVIDERS: PCP Nurse Practitioner Family; Visit Provider Family Medicine
DX: E53.8 Deficiency of other specified B group vitamins (principal)
CPT/HCPCS: 36415; 82607

== ENCOUNTER 2024-04-03 12:28 | Outpatient (REF) | payer MEDICAID, SELFPAY ==
--- NOTE | 2024-04-03 11:30 | PAPFT_PTH ---
PATIENT: Miesha Cheema LOC: [facility] U#:[id number] AGE/SX: 38/F ROOM: RE04/03/[address]: SONIA Parker : 1985 BED: DIS: 04/03/2024 SPEC #: [id number] RECD: 04/06/24 13:17 STATUS: [place]ARY REBertha #: [id number] REYMUNDO: 04/03/24 11:[address]: Sulma Ma DEPT: [facility] Cytology RECD BY: Kemi Hall Tissues: 1 - CX/ENDOCX FOR PAP SMEARS Procedures: PAP THIN PREP/UVM Screening HPV DNA PROBE Comments: [id number] (HPV 16 & 18/45)
== END 2024-04-03 12:29 | disposition home or self-care (01) ==
LOC: LBN 12:28
PROVIDERS: PCP Nurse Practitioner Family; Visit Provider Nurse Practitioner Family
DX: E66.9 Obesity, unspecified (principal); F43.10 Post-traumatic stress disorder, unspecified; F32.9 Major depressive disorder, single episode, unspecified; F41.1 Generalized anxiety disorder; K58.9 Irritable bowel syndrome, unspecified; Z80.3 Family history of malignant neoplasm of breast; E53.8 Deficiency of other specified B group vitamins
CPT/HCPCS: 88142; 87624

== ENCOUNTER 2024-04-10 03:03 | Outpatient (CLI) | payer MEDICAID, SELFPAY ==
[2024-04-10 12:20] LABS: Hemoglobin A1C 5.7 % (<5.7)
[2024-04-10 13:11] LABS: ALT 36 U/L (14-59); AST 15 U/L (15-37); Alkaline Phosphatase 104 U/L (46-116); Anion Gap 9.4 mmol/L (3-11); BUN 10 mg/dL (7-18); Bilirubin, Total 0.33 mg/dL (0.2-1.0); CO2 25.6 mmol/L (21.0-32.0); CREATININE 0.7 mg/dL (0.55-1.02); Calcium 8.9 mg/dL (8.5-10.1); Chloride 104 mmol/L (98-107); Estimated GFR 112.75 (mL/min/1.73m2); Glucose 110 mg/dL (74-106); Sodium 139 mmol/L (136-145); Total Protein 8.3 g/dL (6.4-8.2); Vitamin D 25 Total 29.4 ng/mL (30-100)
[2024-04-10 13:12] LABS: Vitamin B12 > 2000 pg/mL (193-986)
[2024-04-13 10:26] LABS: HBs Antibody, Quant >1000.0 mIU/mL (See Note); Hep B Surface Ab Positive (See Note); Hepatitis B Core Antibody Negative (Negative); Hepatitis B Surface Antigen Negative (Negative)
== END 2024-04-10 03:04 | disposition home or self-care (01) ==
PROVIDERS: PCP Nurse Practitioner Family; Visit Provider Nurse Practitioner Family
DX: Z11.59 Encounter for screening for other viral diseases (principal); Z00.00 Encounter for general adult medical examination without abnormal findings; E53.8 Deficiency of other specified B group vitamins
CPT/HCPCS: 36415; 80053; 82306; 86704; 86706; 87340; 82607; 83036

== ENCOUNTER 2024-04-27 10:48 | Outpatient (CLI) | payer MEDICAID, SELFPAY ==
[2024-04-27 09:53] LABS: Calculated LDL 125 mg/dL (<100); Cholesterol 193 mg/dL (<200); HDL Cholesterol 42 mg/dL (40-60); Triglyceride 133 mg/dL (<150)
[2024-04-27 18:13] LABS: Thyroglobulin Antibody <15 U/mL (<=60); Thyroperoxidase Antibody <28 U/mL (<=60)
[2024-04-28 13:20] LABS: IgA 382 mg/dL (85-499); Interpretation (See Note); Tissue Transglutaminase IgA <4.0 CU (<20.0)
== END 2024-04-27 10:49 | disposition home or self-care (01) ==
LOC: LBO 10:50
PROVIDERS: PCP Nurse Practitioner Family; Visit Provider Naturopath
DX: K58.2 Mixed irritable bowel syndrome (principal); R53.83 Other fatigue; R42 Dizziness and giddiness; L65.9 Nonscarring hair loss, unspecified; R59.0 Localized enlarged lymph nodes; Z13.220 Encounter for screening for lipoid disorders
CPT/HCPCS: 36415; 80061; 82784; 83516; 86376

== ENCOUNTER 2024-06-16 01:15 | Outpatient (CLI) | payer MEDICAID, SELFPAY ==
--- NOTE | 2024-06-16 09:20 | DI.US_ITS ---
Exam(s) US PELVIS TRANSVAGINAL EXAM: US PELVIS TRANSVAGINAL CLINICAL HISTORY: increased spotting, dyspareUNIA,MENSTRUAL CHANGES,N92.6 TECHNIQUE: Transabdominal and transvaginal imaging was performed using standard protocol. COMPARISON: No exams were available for comparison FINDINGS: UTERUS: Mildly retroverted.. 7.7 x 2.8 x 3.8 cm Endometrium: 3 mm Myometrium: Unremarkable. Cervix: Small nabothian cysts. OVARIES: Right: Cyst or mass: None. Left: Cyst or mass: 2.7 centimeter hemorrhagic cyst. DOPPLER: Color: Symmetric and uniform flow to both ovaries. No hyperemia. CUL-DE-SAC: Free fluid: None. IMPRESSION: 1. Normal-appearing uterus with endometrial stripe within normal limits. 2. 2.7 centimeter left ovarian hemorrhagic cyst. DATA REPOSITORY:
== END 2024-06-16 01:35 ==
LOC: DI 01:15
PROVIDERS: PCP Nurse Practitioner Family; Visit Provider Nurse Practitioner Family
DX: N83.292 Other ovarian cyst, left side (principal)
CPT/HCPCS: 76830; 76856

== ENCOUNTER 2024-08-03 02:10 | Outpatient (CLI) | payer MEDICAID, SELFPAY ==
[2024-08-03 11:13] LABS: Vitamin D 25 Total 27.9 ng/mL (30-100)
[2024-08-03 17:26] LABS: CRP, High Sensitivity 6.84 mg/L (See Note)
[2024-08-06 13:58] LABS: Apolipoprotein A1, S 118 mg/dL (>=140); Apolipoprotein B, S 138 mg/dL (See Comment); Apolipoprotein B/A 1 ratio 1.2 (See Comment)
[2024-08-06 17:47] LABS: Alpha-aminoadipic Acid 0 nmol/mL (<4); Gamma-amino-n-butyric Acid 0 nmol/mL (<4)
== END 2024-08-03 02:11 | disposition home or self-care (01) ==
PROVIDERS: PCP Nurse Practitioner Family; Visit Provider Naturopath
DX: R53.83 Other fatigue (principal); E66.3 Overweight; K58.2 Mixed irritable bowel syndrome; E55.9 Vitamin D deficiency, unspecified; E78.00 Pure hypercholesterolemia, unspecified; F31.81 Bipolar II disorder; R59.0 Localized enlarged lymph nodes
CPT/HCPCS: 36415; 82172; 82306; 86141; 82139

== ENCOUNTER 2025-04-15 12:22 | Outpatient (REF) | payer MEDICAID, SELFPAY | END 2025-04-15 12:23 | disposition home or self-care (01) | LOC: LBN 12:22 | PROVIDERS: PCP Nurse Practitioner Family; Visit Provider Nurse Practitioner Family | DX: J02.9 Acute pharyngitis, unspecified (principal) | CPT/HCPCS: 87070 ==

== ENCOUNTER 2025-04-21 02:46 | Outpatient (CLI) | payer MEDICAID, SELFPAY ==
[2025-04-21 10:12] LABS: Hemoglobin A1C 5.5 % (<5.7)
[2025-04-21 11:10] LABS: ALT 37 U/L (14-59); AST 16 U/L (15-37); Albumin 4.0 g/dL (3.4-5.0); Alkaline Phosphatase 125 U/L (46-116); Anion Gap 11.1 mmol/L (3-11); BUN 12 mg/dL (7-18); Bilirubin, Total 0.3 mg/dL (0.2-1.0); CO2 25.9 mmol/L (21.0-32.0); Calcium 8.9 mg/dL (8.5-10.1); Calculated LDL 124 mg/dL (<100); Chloride 101 mmol/L (98-107); Cholesterol 222 mg/dL (<200); Estimated GFR 112.05 (mL/min/1.73m2); Glucose 98 mg/dL (74-106); HDL Cholesterol 39 mg/dL (>or=50); Potassium 4.4 mmol/L (3.5-5.1); Sodium 138 mmol/L (136-145); Total Protein 8.4 g/dL (6.4-8.2); Triglyceride 295 mg/dL (<150); Vitamin B12 1886 pg/mL (193-986); Vitamin D 25 Total 25 ng/mL (30-100)
== END 2025-04-21 02:47 | disposition home or self-care (01) ==
PROVIDERS: PCP Nurse Practitioner Family; Visit Provider Nurse Practitioner Family
DX: F41.1 Generalized anxiety disorder; F90.2 Attention-deficit hyperactivity disorder, combined type; F32.9 Major depressive disorder, single episode, unspecified; E78.5 Hyperlipidemia, unspecified; R73.03 Prediabetes; E53.8 Deficiency of other specified B group vitamins; E55.9 Vitamin D deficiency, unspecified
CPT/HCPCS: 36415; 80053; 80061; 82306; 82607; 83036

== ENCOUNTER 2025-04-21 08:58 | Outpatient (REF) | payer MEDICAID, SELFPAY | END 2025-04-21 08:59 | disposition home or self-care (01) | LOC: LBN 08:58 | PROVIDERS: PCP Nurse Practitioner Family; Visit Provider Nurse Practitioner Women's Health | DX: N76.0 Acute vaginitis (principal) | CPT/HCPCS: 87480; 87510; 87660 ==

== ENCOUNTER 2025-07-16 15:00 | Outpatient (CLI) | payer OTHER, SELFPAY ==
[2025-07-16 10:05] LABS: Abs Immature Grans 0.01 10^3/uL (0.0-0.06); HCT 42.0 % (36.0-46.0); HGB 13.7 g/dL (11.2-15.7); Immature Grans % 0.2 %; MCH 29.8 pg (27.0-33.0); MCHC 32.6 % (32.0-36.0); MCV 92 fL (80-95); MPV 10.3 fL (8.0-11.0); Platelet Count 278 10^3/uL (130-400); RBC 4.59 10^6/uL (3.93-5.22); RDW 12.2 % (11.7-14.6); RDW-SD 40.6 fL; WBC 6.12 10^3/uL (4.4-10.8)
[2025-07-16 10:07] LABS: ESR 11 mm/hr (0-20)
[2025-07-16 10:36] LABS: ALT 32 U/L (14-59); AST 14 U/L (15-37); Albumin 3.8 g/dL (3.4-5.0); Alkaline Phosphatase 101 U/L (46-116); Anion Gap 10.1 mmol/L (3-11); BUN 11 mg/dL (7-18); Bilirubin, Total 0.3 mg/dL (0.2-1.0); CO2 27.9 mmol/L (21.0-32.0); Calcium 8.4 mg/dL (8.5-10.1); Calculated LDL 159 mg/dL (<100); Chloride 103 mmol/L (98-107); Cholesterol 238 mg/dL (<200); Estimated GFR 82.88 (mL/min/1.73m2); Glucose 68 mg/dL (74-106); HDL Cholesterol 42 mg/dL (>or=50); Magnesium 2.0 mg/dL (1.8-2.4); Potassium 3.7 mmol/L (3.5-5.1); Sodium 141 mmol/L (136-145); Total Protein 7.6 g/dL (6.4-8.2); Triglyceride 187 mg/dL (<150)
[2025-07-16 10:54] LABS: C-Reactive Protein < 0.50 mg/dL (<or=0.5)
[2025-07-16 10:57] LABS: Vitamin D 25 Total 42 ng/mL (30-100)
== END 2025-07-16 15:01 | disposition home or self-care (01) ==
LOC: LBO 15:00
PROVIDERS: PCP Nurse Practitioner Family; Visit Provider Family Medicine Adult Medicine
DX: E55.9 Vitamin D deficiency, unspecified (principal); Z83.42 Family history of familial hypercholesterolemia; M25.50 Pain in unspecified joint; E78.00 Pure hypercholesterolemia, unspecified; Z01.84 Encounter for antibody response examination; E88.819 Insulin resistance, unspecified; R52 Pain, unspecified; R89.1 Abnormal level of hormones in specimens from other organs, systems and tissues; M06.4 Inflammatory polyarthropathy; R79.83 Abnormal findings of blood amino-acid level; R70.0 Elevated erythrocyte sedimentation rate; N28.9 Disorder of kidney and ureter, unspecified; R76.0 Raised antibody titer; K76.9 Liver disease, unspecified; E72.11 Homocystinuria; E87.8 Other disorders of electrolyte and fluid balance, not elsewhere classified
CPT/HCPCS: 36415; 80053; 80061; 82306; 83090; 85652; 83735; 84140; 85025; 86038; 86140